=== PATIENT | female | born 1990 | race Caucasian/White ===

== ENCOUNTER → 2017-02-25 17:50 | Observation (INO) ==
[2017-02-25 16:13] LABS: Bilirubin,Urine Negative (Negative); Blood,Urine Negative (Negative); Clarity,Urine Cloudy (Clear); Color,Urine Yellow (Yellow); Glucose,Urine (UA) Normal (Normal); Ketones,Urine Negative (Negative); Leukocyte Esterase,Urine Small (Negative); Nitrite,Urine Negative (Negative); PH,Urine 6.5 pH Units (5.0-8.0); Protein,Urine Negative (Neg-Trace); Specific Gravity,Urine 1.017 (1.010-1.025); Urobilinogen,Urine Normal (Normal)
[2017-02-25 16:16] LABS: Bacteria,Urine Few per hpf (None-Few); Hyaline Casts,Urine None Seen per lpf (None-Few); RBC,Urine 0-3 per hpf (0-3); Squamous Epithelial Cell,Urine Many per lpf (None-Few)
--- NOTE | 2017-02-25 17:40 | Discharge Summary ---
Date of Encounter: 02/25/17 Time of Encounter: 17:42 - Discharge Diagnosis (1) 30 weeks gestation of Priority: Primary Status: Acute Comments: admitted for observation (2) NST (non-stress test) reactive on surveillance Priority: Secondary Status: Acute Comments: RNST follow up in office as scheduled. - Discharge Medications Home Medications: Cetirizine HCl [Zyrtec] 10 mg PO DAILY 02/25/17 [History] Ferrous Sulfate [Iron] 325 mg PO DAILY 02/25/17 [History] Vit37/Iron/Folic Acid [Prenata Chewable Tablet] 1 tab PO DAILY [History] Allergies/Adverse Reactions: Allergies morphine Allergy (Verified 02/25/17 15:42) Hives Data Procedures and tests throughout hospitalization: Laboratory Tests 02/25/17 16:03 Urine Color Yellow Urine Clarity Cloudy A Urine pH 6.5 Ur Specific [place] 1.017 Urine Protein Negative Urine Glucose (UA) Normal Urine Ketones Negative Urine Blood Negative Urine Nitrite Negative Urine Bilirubin Negative Urine Urobilinogen Normal Ur Leukocyte Esterase Small H Urine Microscopic RBC 0-3 Urine Microscopic WBC 5-15 H Ur Squamous Epith Cells Many H Urine Bacteria Few Hyaline Casts None Seen Ur Culture Indicated? YES A Labs on day of discharge: Labs from last 24 hours 02/25/17 16:03 Urine Color Yellow Urine Clarity Cloudy A Urine pH 6.5 Ur Specific [place] 1.017 Urine Protein Negative Urine Glucose (UA) Normal Urine Ketones Negative Urine Blood Negative Urine Nitrite Negative Urine Bilirubin Negative Urine Urobilinogen Normal Ur Leukocyte Esterase Small H Urine Microscopic RBC 0-3 Urine Microscopic WBC 5-15 H Ur Squamous Epith Cells Many H Urine Bacteria Few Hyaline Casts None Seen Ur Culture Indicated? YES A Date of admission: 02/25/17 15:13 Primary care physician: Eva Mckeon CNP Discharging clinician: Janey Tinoco Anticipated date of discharge: 02/25/17 - Patient Status Disposition: Home, Self-Care Condition: Good Functional capacity at discharge: independent ambulation - Discharge Instructions Follow Up With: Eva Mckeon CNP [Primary Care Provider] - Janey Tinoco CNM [Non-Partnered Physician] - Additional Instructions: LABOR AND DELIVERY DISCHARGE INSTRUCTIONS Signs and Symptoms to be Reported to your Doctor Immediately: * Sudden gush, continuous or intermittent lead of fluid from vagina (note the time of gush and color of fluid) * Onset of bright red vaginal bleeding with or without pain (if you had a vaginal exam during this visit you may notice some dark red spotting. This is normal.) * Lower abdominal cramping or backache that is premenstrual-like feeling. * More than 6 contractions in one hour. * Burning during urination, having to urinate more frequently or pain in your mid-back. * A change in the baby's activity. This could be an increase or decrease in activity. * Severe headache which does not go away with tylenol. * Sudden swelling in the face, hands, arms and/or legs. * Upper abdominal pain - sometimes associated with heartburn or nausea and is not relieved by Maalox, Mylanta or Tums. * Dizziness or blurred vision or visual disturbances (seeing stars/lights). * Kick Counts One hour after a meal, lay down on one side in a quiet place. Count the number of leighton the baby moves during an hour. If less than 6 movements, notify your physician. Diet: *Force fluids - 8-10 tall glasses of fluid per day. May include popsicles and jello. *Limit caffeine - this includes chocolate, coffee, tea, any soft drink containing such as all veto, Randall Yellow and Mountain Dew - Diet and Activity Activity: increase activity as tolerated Diet: regular diet Hospital Course CLINICAL OB Hospital course: Patient is 26 y/o at 30w6d presents to labor and delivery with complaints of feeling lightheaded, weak and feeling like she was going to pass out. Patient reports she then had SOB but feels that could be due to anxiety after not feeling movement. Patient denies, contractions, LOF or VB. Patient denies any urinary symptoms. Time Attestation: Total time spent providing and/or coordinating discharge services: Time Spent: Less than 30 minutes Exam - Cardiovascular Cardiovascular exam IM: Present: RRR, +S1 - Other Additional findings: Patient was assessed by RN. FHR 140 bpm moderate variability + 15x15 accels no decels noted. No contractions. RNST. - VTE Reasons for not Prescribing Prophylaxis: Treatment not Indicated - Low risk for VTE
== END | disposition home or self-care (01) ==
LOC: 1NENULAB
PROVIDERS: ADMIT Student in an Organized Health Care Education/Training Program; ATTEND Student in an Organized Health Care Education/Training Program

== ENCOUNTER 2017-04-17 04:37 | Inpatient (IN) ==
[2017-04-17] MEDS ORDERED: Lidocaine 1% 20 ML MDV ONE (04:48)
[2017-04-17] MEDS ORDERED: Famotidine 20 MG/2 ML VIAL IVP PRN (04:51)
[2017-04-17] MEDS ORDERED: Naloxone 0.4 MG/ML INJ IVP PRN (04:51)
[2017-04-17] MEDS ORDERED: *HR* Nalbuphine 20 MG/ML AMPUL IVP PRN (04:53)
[2017-04-17] MEDS ORDERED: Ringers Solution, Lactated 1,000 ML IVC SCH (05:00)
[2017-04-17] MEDS ORDERED: *HR* Ropivacaine/PF 0.2% 10 ML AMPUL EP ONE (05:04)
[2017-04-17] MEDS ORDERED: *HR* FentaNYL (PF) 100 MCG/2 ML VIAL EP ONE (05:04)
[2017-04-17] MEDS ORDERED: EPHEDrine 50 MG/ML VIAL IVP PRN (05:04)
--- NOTE | 2017-04-17 05:04 | Anesthesia Evaluation PreOp ---
Date of Encounter: 04/17/17 Time of Encounter: 05:02 - Past History Planned Operation: checo Cardiac History: Denies any Significant Hx Pulmonary History: Denies Any Significant HX CURBING STONECUTTER History: Denies Any Significant HX Other Medical History: Denies Any Significant HX Anesthesia History: No Prior Anesthetic Complications, Past Anesthesia : Yes ( 38 weeks) Alcohol Use: none Drug use: none Medications and Allergies Cetirizine HCl [Zyrtec] 10 mg PO DAILY 02/25/17 [History] Ferrous Sulfate [Iron] 325 mg PO DAILY 02/25/17 [History] Vit37/Iron/Folic Acid [Prenata Chewable Tablet] 1 tab PO DAILY [History] Allergies morphine Allergy (Verified 02/25/17 15:42) Hives - Meds/Allergy Pre-op Review Medications Reviewed: Yes Allergies Reviewed: Yes Beta Blockers on Current Med List: No Anesthesia Exam O2 Sat Height 1.65 m Weight 114.7 kg Vital Signs Temp Pulse Resp BP 97.2 F L 96 16 119/74 04/17/17 03:39 04/17/17 03:39 04/17/17 03:39 04/17/17 03:39 Weight: 114 - HEENT Pupil (Motor): Pupils equal Mallampati: II Teeth: Normal Oral Opening: Greater than 3 - CURBING STONECUTTER LOC: Oriented CURBING STONECUTTER Motor: Normal RUE, Normal LUE, Normal RLE, Normal LLE, Normal Face CURBING STONECUTTER Sensory: Normal: RUE, LUE, RLE, LLE, Face - Cardiac Rhythm: Regular Murmur: None JVD: No Carotid Bruit: No - Pulmonary Breath Sounds: bilateral Clear Respiratory Effort: Symmetrical Anesthesia Assess/Plan ASA Score: 2 Modified [place] Scale for Level of Consciousness: Cooperative, oriented, and tranquil Anesthetic Plan: Regional Monitoring Plan: Standard Monitors
[2017-04-17] MEDS ORDERED: *HR* FentaNYL (PF) 100 MCG/2 ML VIAL ONE (05:09)
[2017-04-17] MEDS ORDERED: *HR* Ropivacaine/PF 0.2% 10 ML AMPUL ONE (05:10)
[2017-04-17] MEDS ORDERED: Epidural Premix (fent/bupiv) 110 ML EP ONE (05:10)
[2017-04-17 05:12] LABS: Basophils % 0.2 %; Eosinophils % 0.2 %; Hematocrit 41.2 % (35.3-44.9); Hemoglobin 13.5 g/dL (11.5-15.4); Immature Granulocytes % 0.9 % (0-4); Lymphocytes # 1.7 K/mcL (0.6-4.6); Lymphocytes % 9.5 %; Mean Corpuscular HGB Conc 32.8 g/dL (31.6-35.5); Mean Corpuscular Hemoglobin 26.1 pg (28.0-33.3); Mean Corpuscular Volume 79.7 fL (83.0-100.0); Mean Platelet Volume 10.1 fL (9.4-12.4); Monocytes # 0.8 K/mcL (0.0-1.3); Monocytes % 4.2 %; Neutrophils # 15.3 K/mcL (1.6-8.9); Platelet Count 242 K/mcL (140-400); Red Blood Count 5.17 M/mcL (3.82-4.97)
[2017-04-17] MEDS ORDERED: Epidural Premix (fent/bupiv) 110 ML EP SCH (05:15)
[2017-04-17] MEDS ORDERED: Oxytocin 20 units/ LR 1000 mL 20 UNIT/1,000 ML BAG IVC ONE ×2 (05:29→07:37)
--- NOTE | 2017-04-17 05:33 | Anesthesia Procedures ---
Date of Encounter: 04/17/17 Time of Encounter: 05:32 Procedures: Anesthesia - Epidural/Spinal Patient ID/Chart reviewed: Yes Patient examined: Yes OB Eval: : 5 OB Eval: Hx Para: 1 OB Eval: Contractions: Non-stressed pattern Site Prep: Aseptic Technique, 0.5% Chlorhexidine/Alcohol Patient position: upright Local Anesthetic: Lidocaine 1% Amount of Local Anesthetic used: 3 Touhy Needle Gauge: 18 Touhy Needle Depth (cm): 7 Catheter Depth at Skin (cm): 14 Test Dose (1.5% Lido + Epi): Volume given (mls): 3 Test Dose Result: Negative Loading Dose: 0.25% Marcaine (mls): 5 Loading Dose: Fentanyl (mcg): 100 Loading Dose Administered: Thru Touhy Needle Infusion Med: 0.125% Bupivacaine w/ 2 mcg/ml Fentanyl Infusion Rate (mls/hr): [address]: Tegaderm Interspace Used: L2-L3 Loss of Resistance (ZAINAB): Yes Blood: No CSF: No Paresthesia: No
--- NOTE | 2017-04-17 06:10 | OB/GYN Procedure Note ---
Delivery - Delivery Date: 04/17/17 Provider: Gabbi Mann Intrapartum events: precipitous labor- <3hr Delivery induction: none Delivery monitor: external FHT, external uterine Anesthesia: epidural Estimated Blood Loss: 200 - Infant (s) A Infant Delivery Date: 04/17/17 Delivery Time: 05:37 Presentation: vertex Position: OA Route of delivery: Gender: Female Viability: Viable Pounds: 7 Ounces: 13 at 1 minute: 8 at 5 mins: 9 Shoulder Dystocia: not encountered Specimens collected: cord blood Placenta: spontaneous Cord: 3 umbilical vessels - Repair Episiotomy: none Laceration Description: None - Complications Delivery complications: none - Disposition Mom disposition: stable in LDR [place] disposition: stable in LDR - Comments Comments: Pt complained for need to push after epidural. Complete on exam, maternal bearing down efforts to liveborn girl. Vertex delivered OA, no nuchal encountered, turtle sign noted but shoulders easily followed, no shoulder dystocia encountered. Vigorous placed on maternal abdomen, Apgars 8/9 placenta delivered spontaneously and was complete on inspection, fundus firm. EBL 200. Perineal inspection shows intact perineum no tears.
--- NOTE | 2017-04-17 06:20 | OB/GYN History & Physical ---
Date of Encounter: 04/17/17 Time of Encounter: 06:18 Assessment and Plan (1) 38 weeks gestation of Current visit: Yes Status: Acute (2) Labor without complication Current visit: Yes Status: Acute Admit to labor and delivery with usual labor admission orders Epidural if desired Anticipate (3) Vaginal delivery Current visit: Yes Status: Acute History of Present Illness HPI: Ms. Nelson is a 26 year old female presents bleeding and contractions in spontaneous labor patient 5 cm on admission. Patient states uncomplicated . Patient reports good movement on admission, no other complaints were noted by RNs of vaginal bleeding or leaking of fluid. Patient denies any complications in last delivery Labs: O-, GBS negative, rubella immune, all other serologies negative Past Med Surg Social Fam HX - Past Medical History Psychiatric history: depression - Social History Smoking Status: Never smoker Smokeless Tobacco Status: No Alcohol use: none Drug use: none - Family History Mother Age: 45 Family Member Ethnicity: Non- Living Status: Still Living Hx Family Cardiac Disorders: No Hx Family Respiratory Disorders: No Hx Family Cancer: No Hx Family GI Disorders: No Hx Family Genitourinary Disorders: No Hx Family Endocrine Disorder: No Hx Family Musculoskeletal Disorders: No Hx Family Neuromuscular Disorders: No Hx Family Neurologic Disorders: No Hx Family HEENT Disorders: No Hx Family Autoimmune Disorders: No Hx Family Reproductive Disorders: No Hx Family Psychosocial Disorders: No Hx Family Medical Disorders: No Obstetrical History - Pregnancies : 5 Para: 1 Term: 1 : 0 Ab's: 3 Livin Medications and Allergies Cetirizine HCl [Zyrtec] 10 mg PO DAILY 02/25/17 [History] Ferrous Sulfate [Iron] 325 mg PO DAILY 02/25/17 [History] Vit37/Iron/Folic Acid [Prenata Chewable Tablet] 1 tab PO DAILY [History] Allergies morphine Allergy (Verified 02/25/17 15:42) Hives Exam - Vital Signs Vital signs: Initial Vital Signs Temp Pulse Resp BP 97.2 F L 96 16 119/74 04/17/17 03:39 04/17/17 03:39 04/17/17 03:39 04/17/17 03:39 - Constitutional Constitutional: well developed, well nourished, no acute distress, obese - Neck Neck exam: full ROM - Lungs Respiratory exam: CTAB - Cardiovascular Cardiovascular exam: RRR, +S1, +S2 - Abdomen Abdomen: Present: bowel sounds normal, gravid - Vagina Vagina: Present: normal moisture - Cervix Dilation: 10 - Uterus Uterus exam: Present: normal size, normal contour - Anus/Rectum Anus/Rectum: Present: normal perianal skin Results Result Diagrams: 04/17/17 04:55 Abnormal lab results WBC 18.0 K/mcL (4.3-11.1) H 04/17/17 04:55 RBC 5.17 M/mcL (3.82-4.97) H 04/17/17 04:55 MCV 79.7 fL (83.0-100.0) L 04/17/17 04:55 MCH 26.1 pg (28.0-33.3) L 04/17/17 04:55 RDW 15.0 % (11.5-14.5) H 04/17/17 04:55 Neutrophils # 15.3 K/mcL (1.6-8.9) H 04/17/17 04:55 All other labs normal. - VTE Reasons for not Prescribing Prophylaxis: Treatment not Indicated - Low risk for VTE
[2017-04-17] MEDS ORDERED: Lanolin 28 GM TUBE TP PRN (07:42)
[2017-04-17] MEDS ORDERED: Benzocaine/Menthol 56 GM AEROSOL SPRAY TP PRN (07:42)
[2017-04-17] MEDS ORDERED: Acetaminophen 325 MG TABLET PO PRN (07:42)
[2017-04-17] MEDS ORDERED: Oxytocin 20 units/ LR 1000 mL 20 UNIT/1,000 ML BAG IVC SCH (07:42)
[2017-04-17] MEDS ORDERED: Rho Immune Globulin 1,500 UNIT SYRINGE IM PRN (07:42)
[2017-04-17] MEDS: Ibuprofen 600 MG TABLET PO PRN ×3 (08:00→20:52)
[2017-04-17] MEDS ORDERED: Prenatal Vit/FA 1 EACH TABLET PO SCH (09:00)
[2017-04-18] MEDS: Ibuprofen 600 MG TABLET PO PRN (04:07)
--- NOTE | 2017-04-18 08:01 | Discharge Summary ---
Date of Encounter: 04/18/17 Time of Encounter: 07:58 - Discharge Diagnosis (1) Breast feeding status of mother Priority: Secondary Status: Acute Comments: support prn (2) Vaginal delivery Priority: Primary Status: Acute Comments: Continue routine care discharge home today follow up with CNM in 4-6 weeks. - Discharge Medications Prescriptions: Breast Pump [BREAST PUMP] 1 each .ROUTE AD #1 each Home Medications: Cetirizine HCl [Zyrtec] 10 mg PO DAILY 02/25/17 [History] Vit37/Iron/Folic Acid [Prenata Chewable Tablet] 1 tab PO DAILY [History] Breast Pump [BREAST PUMP] 1 each .ROUTE AD #1 each 04/18/17 [Rx] Allergies/Adverse Reactions: Allergies morphine Allergy (Verified 02/25/17 15:42) Hives Data Procedures and tests throughout hospitalization: Laboratory Tests 04/17/17 04/17/17 04:55 06:18 WBC 18.0 H RBC 5.17 H Hgb 13.5 Hct 41.2 MCV 79.7 L MCH 26.1 L MCHC 32.8 RDW 15.0 H Plt Count 242 MPV 10.1 Immature Gran % 0.9 Seg Neutrophils % 85.0 Lymphocytes % 9.5 Monocytes % 4.2 Eosinophils % 0.2 Basophils % 0.2 Neutrophils # 15.3 H Lymphocytes # 1.7 Monocytes # 0.8 Eosinophils # 0.0 Basophils # 0.0 Baby's Blood Type A RH NEGATIVE Mother's Blood Type O RH NEGATIVE Rhogam Indicated NO Labs on day of discharge: Labs from last 24 hours 04/17/17 06:18 Baby's Blood Type A RH NEGATIVE Mother's Blood Type O RH NEGATIVE Rhogam Indicated NO Date of admission: 04/17/17 04:37 Primary care physician: Eva Mckeon CNP Consults: 04/17/17 07:42 Consult to Access Tech [CONS] Routine Comment: Vaginal delivery, consult needed Discharging clinician: Janey Tinoco Anticipated date of discharge: 04/18/17 - Patient Status Disposition: Home, Self-Care Condition: Good Functional capacity at discharge: independent ambulation - Discharge Instructions Follow Up With: Eva Mckeon CNP [Primary Care Provider] - Gabbi Mann CNM [Advanced Practice Nurse] - - Diet and Activity Activity: increase activity as tolerated Diet: regular diet Hospital Course Reason for admission: active labor Delivery: Episiotomy: none Laceration: none Other procedures: none complications: none Discharge diagnosis: IUP at term delivered baby: female (breast feeding) Time Attestation: Total time spent providing and/or coordinating discharge services: Time Spent: Less than 30 minutes Exam - Constitutional Vitals: Temp Pulse Resp BP Pulse Ox 98.3 F 81 16 91/56 98 04/18/17 03:40 04/18/17 03:40 04/18/17 03:40 04/18/17 03:40 04/18/17 03:40 General appearance IM: A&O X 3, pleasant, answers questions appropriately - Respiratory Respiratory exam: Present: CTAB - Cardiovascular Cardiovascular exam IM: Present: RRR, +S1, +S2 - GI/Abdominal GI/Abdominal exam IM: normal bowel sounds - Uterine Tone: Firm Uterus Position: 1 Finger Below Umbilicus, Midline - Extremities Exam Extremities exam IM: Present: full ROM, normal capillary refill, normal inspection - Neurological Exam Neurological exam: alert, oriented X3, reflexes normal
[2017-04-18 09:19] VITALS: BP 103/75
== END 2017-04-18 10:45 | disposition home or self-care (01) | DRG 560 ==
LOC: 1NENULAB → 1NENUOBS 08:09
PROVIDERS: ADMIT Advanced Practice Midwife; ATTEND Advanced Practice Midwife